=== PATIENT | male | born 1970 | race Caucasian/White ===

== ENCOUNTER 2020-06-22 10:51 | Emergency (ER) | payer OTHER, SELFPAY ==
[2020-06-22 10:52] VITALS: BP 121/77; PULSE 100; RESP 16; TEMP 36.6; O2SAT 99
--- NOTE | 2020-06-22 12:11 | PC.NURSE ---
Registration let this RN know that pt told her he had an emergency and had to leave. She states pt ambulated out the front door
== END 2020-06-22 12:11 | disposition home or self-care (01) ==
PROVIDERS: Emergency Provider Emergency Medicine
DX: M54.5 Low back pain (principal)
CPT/HCPCS: 99199